=== PATIENT | male | born 1995 | race African-American/Black ===

== ENCOUNTER 2016-11-28 20:14 | Emergency (ER) | payer SELFPAY ==
[~2016-11-28] VITALS: Ht 172.7 cm; Wt 117.9 kg
[2016-11-28 20:57] VITALS: BP 134/77
== END 2016-11-28 23:06 | disposition left against medical advice (07) ==
LOC: ER 20:37
DX: M25.511 Pain in right shoulder (principal); Z53.21 Procedure and treatment not carried out due to patient leaving prior to being seen by health care provider

== ENCOUNTER 2016-11-29 09:39 | Emergency (ER) | payer SELFPAY ==
[~2016-11-29] VITALS: Ht 172.7 cm; Wt 117.9 kg
[2016-11-29 10:04] VITALS: BP 144/71
[2016-11-29] MEDS ORDERED: ETHYL CHLORIDE SPRAY TOP ONE (10:15)
[2016-11-29] MEDS ORDERED: LIDOCAINE 1% HCL (LOCAL ANESTH.) INJ 20ML MDV IJ ONE (10:15)
[2016-11-29] MEDS ORDERED: cefTRIAXone SOD 1,000 MG VL IM ONE (10:30)
[2016-11-29] MEDS ORDERED: HYDROcodone-ACET 10/325MG TAB PO ONE (10:30)
== END 2016-11-29 10:53 | disposition home or self-care (01) ==
LOC: ER 09:39
DX: L02.411 Cutaneous abscess of right axilla (principal)
CPT/HCPCS: 10060; 96372; 99284; J0696; J2001

== ENCOUNTER 2016-12-01 12:08 | Emergency (ER) | payer SELFPAY ==
[~2016-12-01] VITALS: Ht 175.3 cm; Wt 117.9 kg
[2016-12-01 12:30] VITALS: BP 152/82
== END 2016-12-01 13:05 | disposition home or self-care (01) ==
LOC: ER 12:08
DX: L02.411 Cutaneous abscess of right axilla (principal); Z48.02 Encounter for removal of sutures